=== PATIENT | female | born 1955 | race Caucasian/White ===

== ENCOUNTER 2024-01-15 09:31 | Outpatient (AMB) | payer OTHER, SELFPAY ==
--- NOTE | 2024-01-15 09:46 | MHC.PC.OV ---
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 Intake Note: New patient visit Study Abroad Advisor Required: No Allergies acetaminophen [From Percocet] Allergy (Unknown, Verified 01/15/24 09:48) Itching oxycodone [From Percocet] Allergy (Unknown, Verified 01/15/24 09:48) Itching Tobacco use date assessed: 01/15/24 Fall risk assessment: 2 + Falls in past year Last assessed Fall Risk: 01/15/24 Dental Screening Dental Screen Date: 01/15/24 Did you have a dental visit in the last 12 months?: Yes Did you have a dental problem in the last 6 months where you did not have access to dental care?: No Was dental information given to patient?: Patient has dentist HPI HPI Comments History of Present Illness Details The patient is a 68 year old female with a past medical history of anxiety/grief, osteoarthritis, impaired fasting glucose and hyperlipidemia presenting for follow-up Chronic pain: Chronic neck, thoracic and low back pain, bilateral hip pain. Stable on oxycodone. Her about a year ago and she has had 2 take over many of the more laborious work around the house. She has a history of multiple back surgeries-Dr. Valdes and thoracic back surgery in [place] Anxiety/insomnia: Present in 2022. She has been able to get off lorazepam in have been sleeping better however recently had increased stress when she found out her daughter had breast cancer. She has been helping her get through surgery, chemo and radiation therapy. They will find out what her prognosis in a few months. CV: On statin, fenofibrate Preventive: Mammo is due. Colonoscopy is up-to-date ROS CONSTITUTIONAL: Denies weight loss, fever and chills. HEENT: Denies changes in vision and hearing. RESPIRATORY: Denies SOB and cough. CV: Denies palpitations and CP GI: Denies abdominal pain, nausea, vomiting and diarrhea. : Denies dysuria and urinary frequency. MSK: Denies new myalgia and joint pain. SKIN: Denies rash and pruritus. NEUROLOGICAL: Denies headache PSYCHIATRIC: Denies recent changes in mood. PHYSICAL EXAM: GENERAL: Alert and oriented x 3. NAD EYES: EOMI. Anicteric. HENT: Moist mucous membranes. No scleral icterus. No cervical lymphadenopathy. LUNGS: Clear to auscultation bilaterally. CARDIOVASCULAR: Regular rate and rhythm. No murmur. No JVD. ABDOMEN: Soft, non-tender +bs EXTREMITIES: No edema. Non-tender. SKIN: No rashes or lesions. Warm. NEUROLOGIC: No focal neurological deficits. CN II-XII grossly intact PSYCHIATRIC: Cooperative. 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 1. Little interest or pleasure in doing things: not at all 2. Feeling down, depressed, or hopeless: not at all 3. Trouble falling or staying asleep, or sleeping too much: several days 4. Feeling tired or having little energy: several days 5. Poor appetite or overeating: not at all 6. Feeling bad about yourself - or that you are a failure or have let yourself or your family down: not at all 7. Trouble concentrating on things, such as reading the newspaper or watching television: not at all 8. Moving or speaking so slowly that other people could have noticed. Or the opposite - being so fidgety or restless that you have been moving around a lot more than usual: not at all 9. Thoughts that you would be better off or of hurting yourself in some way: not at all Total score: 2 Depression Screening Interpretation: Negative Depression Screening Done: Yes 62521 - PHQ-9 Billing: Yes Source: Developed by Drs. Tobias Kelly, Erlinda Horton, Fer Vallejo and colleagues, with an educational melva from [employer]. Thrive Questionnaire Date Thrive assessed: 01/15/24 I am a: Patient What is your living situation today?: I have a steady place to live Within the past 12 months, did the food you bought not last and you didn't have the money to get more?: Often true Within the past 12 months, did you worry whether your food would run out before you got money to buy more?: Often true Do you have trouble paying for medicines?: No Do you have trouble getting transportation to medical appointments?: No Do you have trouble paying your heating and electricity bill?: No Do you have trouble taking care of your child, family member or friend?: No Do you have trouble with day-to-day activities such as bathing, preparing meals, shopping, managing finances, etc.?: No Are you currently unemployed and looking for a job?: No Are you interested in more education?: No Please select the resources that you would like help with: None Currently or been in a relationship where the following occur: No concerns reported THRIVE Score: 2 AUDIT C Alcohol Use Questionnaire (AUDIT-C) 1. How often do you have a drink containing alcohol?: 2-4 times a month 2. How many drinks containing alcohol do you have on a typical day when you are drinking?: 1 or 2 3. How often do you have six or more drinks on one occasion?: Less than monthly Total Score: 3 MAGUE-7 AMB Questionnaire MAGUE-7 Date MAGUE - 7 assessed: 01/15/24 Feeling nervous, anxious, or on edge: 0 = Not at all Not being able to stop or control worryin = Not at all Worrying too much about different things: 1 = Several days Trouble relaxin = Several days Being so restless that it is hard to sit still: 0 = Not at all Becoming easily annoyed or irritable: 0 = Not at all Feeling afraid as if something awful might happen: 0 = Not at all Total MAGUE-7 score (0-4 normal; 5-9 mild; 10-14 moderate; 15-21 severe): 2 Source: Developed by Drs. Tobias Kelly, Erlinda Horton, Fer Vallejo and colleagues, with an educational melva from [employer]. MAGUE-7 Assessment Billing MAGUE-7 Assessment Tool: MAGUE-7 Assessment 91266 Physical exam (Primary Care) Depression Screening Interpretation: Negative Currently or been in a relationship where the following occur: No concerns reported Coding Level of Care Code Est Pt Level 5 (18546) Complex EM visit Add On G2211 Diagnoses Anxiety F41.9 Recurrent major depressive disorder, in partial remission F33.41 Depression Type: major depressive disorder Major depression recurrence: recurrent Active/Remission status: in partial remission Mixed hyperlipidemia E78.2 Hyperlipidemia type: mixed hyperlipidemia Chronic bilateral low back pain without sciatica M54.50; G89.29 Back pain location: low back pain Back pain laterality: bilateral Sciatica presence: without sciatica Additional Codes MAGUE-7 Assessment Billing - MAGUE-7 Assessment Tool: MAGUE-7 Assessment 18377 ([id number]) PHQ-9 - 08303 - PHQ-9 Billing: Yes ([id number]) Time Spent (min) 47 Assessment & Plan Assessment & Plan (1) Anxiety: Code(s): F41.9 - Anxiety disorder, unspecified Category: Medical (2) Depression: Code(s): F32.A - Depression, unspecified Category: Medical Qualifiers: Depression Type: major depressive disorder Major depression recurrence: recurrent Active/Remission status: in partial remission Qualified Code(s): F33.41 - Major depressive disorder, recurrent, in partial remission (3) Hyperlipidemia: Code(s): E78.5 - Hyperlipidemia, unspecified Category: Medical Qualifiers: Hyperlipidemia type: mixed hyperlipidemia Qualified Code(s): E78.2 - Mixed hyperlipidemia (4) Chronic back pain: Code(s): M54.9 - Dorsalgia, unspecified; G89.29 - Other chronic pain Category: Medical Qualifiers: Back pain location: low back pain Back pain laterality: bilateral Sciatica presence: without sciatica Qualified Code(s): M54.50 - Low back pain, unspecified; G89.29 - Other chronic pain Plan Anxiety and depression are stable on current medications Chronic pain/failed back syndrome is stable on opiate therapy Hyperlipidemia: She is due for labs Preventive: Mammo with ordered. Colonoscopy is up-to-date Orders: Orders Complete Blood Count Auto Diff Today F32.A - Depression, unspecified, F41.9 - Anxiety disorder, unspecified, R61 - Generalized hyperhidrosis, Z13.0 - Encounter for screening for diseases of the blood and blood-forming organs and certain disorders involving the immune mechanism, Z13.220 - Encounter for screening for lipoid disorders Comprehensive Met. Panel Today F32.A - Depression, unspecified, F41.9 - Anxiety disorder, unspecified, R61 - Generalized hyperhidrosis, Z13.0 - Encounter for screening for diseases of the blood and blood-forming organs and certain disorders involving the immune mechanism, Z13.220 - Encounter for screening for lipoid disorders TSH reflex Free T4 Today F32.A - Depression, unspecified, F41.9 - Anxiety disorder, unspecified, R61 - Generalized hyperhidrosis, Z13.0 - Encounter for screening for diseases of the blood and blood-forming organs and certain disorders involving the immune mechanism, Z13.220 - Encounter for screening for lipoid disorders T Spot TB Today F32.A - Depression, unspecified, F41.9 - Anxiety disorder, unspecified, R61 - Generalized hyperhidrosis, Z13.0 - Encounter for screening for diseases of the blood and blood-forming organs and certain disorders involving the immune mechanism, Z13.220 - Encounter for screening for lipoid disorders Hemoglobin A1c Today F32.A - Depression, unspecified, F41.9 - Anxiety disorder, unspecified, R61 - Generalized hyperhidrosis, Z13.0 - Encounter for screening for diseases of the blood and blood-forming organs and certain disorders involving the immune mechanism, Z13.220 - Encounter for screening for lipoid disorders MM screening mammo BI Today Z12.31 - Encounter for screening mammogram for malignant neoplasm of breast Medications: New oxycodone Partial Fill upon patient request. 5 mg PO TID PRN 84 tabs 0RF pain NS Discontinued lorazepam Discontinued Reason: Patient no longer taking 1 - 2 mg (1 - 2 x 1 mg) PO BID 28 days PRN 84 tabs 0RF anxiety
== END 2024-01-15 10:15 | disposition home or self-care (01) ==
PROVIDERS: PCP Internal Medicine; Visit Provider Internal Medicine
DX: E78.2 Mixed hyperlipidemia (principal); F41.9 Anxiety disorder, unspecified; F33.41 Major depressive disorder, recurrent, in partial remission; M54.50 Low back pain, unspecified; G89.29 Other chronic pain

== ENCOUNTER → 2024-01-15 09:31 | Outpatient (BNVA) | payer OTHER, SELFPAY | PROVIDERS: PCP Internal Medicine; Visit Provider Internal Medicine | DX: F41.9 Anxiety disorder, unspecified (principal); F33.41 Major depressive disorder, recurrent, in partial remission; E78.2 Mixed hyperlipidemia; G89.29 Other chronic pain; M54.50 Low back pain, unspecified | CPT/HCPCS: 96127 ==

== ENCOUNTER 2024-01-15 10:43 | Outpatient (REF) | payer OTHER, SELFPAY ==
[2024-01-15 14:24] LABS: MANUAL DIFF FLAG NO
[2024-01-15 14:38] LABS: Basophils Percent Auto 0.5 % (0-2); Eosinophils Percent Auto 0.5 % (0-4); Hematocrit 44.7 % (37.0-47.0); Hemoglobin 15.3 g/dl (12.0-16.0); Imm Gran Abs Auto 0.04 X10*3/uL (0.00-0.03); Imm Gran Pct Auto 0.5 % (0.0-0.4); Lymphocytes Absolute Auto 1.5 X10*3/uL (1.2-4.9); Lymphocytes Percent Auto 20.5 % (20-40); Mean Corpuscular HGB Conc 34.2 g/dl (31.0-35.0); Mean Corpuscular Hemoglobin 33.2 pg (27.0-33.0); Mean Platelet Volume 10.2 fL (9.4-12.3); Monocytes Absolute Auto 0.4 X10*3/uL (0.1-1.2); Monocytes Percent Auto 5.3 % (2-11); Neutrophils Absolute Auto 5.4 x10*3/uL (2.0-8.3); Neutrophils Percent Auto 72.7 % (45-73); Platelet Count 264 X10*3/uL (160-400); Red Blood Count 4.61 X10*6/uL (4.20-5.50); Red Cell Distribution Width 13.3 % (11.0-16.0); White Blood Count 7.4 X10*3/uL (4.8-10.8)
[2024-01-15 15:08] LABS: Estimated Average Glucose 100 mg/dL; Hemoglobin A1C 116.5114 umol/L; Hemoglobin A1c % 5.1 % (<6.0); Total Hemoglobin (HGBA1C) 3654.3066 umol/L
[2024-01-15 16:12] LABS: Alanine Aminotransferase 21 U/L (0-31); Albumin Level 4.3 g/dL (3.5-5.0); Anion Gap 13 (12-20); Aspartate Amino Transferase 24 U/L (5-31); Bilirubin Total 0.4 mg/dL (0.0-1.0); Blood Urea Nitrogen 7 mg/dL (9-16); Carbon Dioxide 25 mmol/L (22-29); Chloride 108 mmol/L (96-108); Estimated Glomerular Filt Rate > 60; Glucose Random 108 mg/dL (60-115); Potassium 4.1 mmol/L (3.3-5.1); Sodium 142 mmol/L (135-145); TSH reflex Free T4 0.85 uIU/mL (0.32-4.0); Total Protein 7.2 g/dL (6.5-8.0)
[2024-01-15 17:27] LABS: Alkaline Phosphatase 65 U/L (39-117)
[2024-01-18 08:19] LABS: TS Negative Control Passed; TS Panel A 1; TS Panel B 0; TS Positive Control Passed; TSpotTB Negative (Negative)
== END 2024-01-15 10:44 | disposition home or self-care (01) ==
LOC: HO.WFDLDS 10:43
PROVIDERS: Visit Provider Internal Medicine
DX: Z13.0 Encounter for screening for diseases of the blood and blood-forming organs and certain disorders involving the immune mechanism (principal); Z13.220 Encounter for screening for lipoid disorders; F41.9 Anxiety disorder, unspecified; F32.A Depression, unspecified; R61 Generalized hyperhidrosis; Z13.1 Encounter for screening for diabetes mellitus
CPT/HCPCS: 36415; 80053; 83036; 84443; 85025; 86481

== ENCOUNTER 2024-03-12 11:28 | Outpatient (REF) | payer MEDICARE, SELFPAY | END 2024-03-12 11:29 | disposition home or self-care (01) | LOC: HO.MAMMO 11:28 | PROVIDERS: PCP Internal Medicine; Visit Provider Internal Medicine | DX: Z13.89 Encounter for screening for other disorder (principal) ==

== ENCOUNTER 2024-06-17 10:54 | Outpatient (REF) | payer OTHER, SELFPAY ==
--- OUTSIDE RECORDS SUMMARY | 2024-06-17 12:57 | XMS_ITS | Clinical Summary ---
Author Organization [facility] [address] [facility] [place] Address [address] [place] [address] Phone Care Team Providers Care Technical Support Specialist Name Role Phone Bouchra Rebolledo MD Primary Care Provider [phone] Encounters Date Type Department Care Team Description 05/30/2024 Telephone Gastroenterology - [address] [address] Lana Claros PA Med Refill from Last 3 Months Social History Tobacco Use Types Packs/Day Years Used Date Smoking Tobacco: Never Assessed Comments Unknown Sex and Gender Information Value Date Recorded Sex Assigned at Not on file Legal Sex Female 4:06 PM EST Gender Identity Not on file Sexual Orientation Not on file Plan of Treatment Health Maintenance Due Date Last Done Comments Breast Cancer Screening 1955 DTaP,Tdap,and Td Vaccines (1 - Tdap) 10/21/1974 Pneumococcal Vaccine: 50+ Ye ars (1 of 1 - PCV) 10/21/2005 Zoster Vaccines (1 of 2) 10/21/2005 COVID-19 Vaccine ( - 2023-2 5 season) 2023 Colorectal Cancer Screening: Colonoscopy 05/30/2024 Depression Screening 05/30/2024 Falls Risk Assessment 05/30/2024 Hepatitis C Screening 05/30/2024 Medicare Annual Wellness Visit 05/30/2024 Osteoporosis Screening (Bone Density Screening) 05/30/2024 Social Influencers of Health Screening 05/30/2024 Influenza Vaccine (Season Ended) 2024 RSV Immunization Adult Patie nts (1 - 1-dose 75+ series) 10/21/2030 HIB Vaccines Aged Out No longer eligi ble based on patient's age to complete this topic HPV Vaccines Aged Out No longer eligi ble based on patient's age to complete this topic Hepatitis A Vaccines Aged Out No long er eligible based on patient's age to complete this topic Hepatitis B Vaccines Aged Out No long er eligible based on patient's age to complete this topic IPV Vaccines Aged Out No longer eligi ble based on patient's age to complete this topic MMR Vaccines Aged Out No longer eligi ble based on patient's age to complete this topic Meningococcal ACWY Vaccine Aged Out N o longer eligible based on patient's age to complete this topic Meningococcal B Vaccine Aged Out No l onger eligible based on patient's age to complete this topic RSV Immunization Patients Un hari 20 months Aged Out No longer eligible b ased on patient's age to complete this topic Varicella Vaccines Aged Out No longer eligible based on patient's age to complete this topic Insurance [place]ICA[place] - [place] MEDIC[place] ADVANTAGE Care Teams Technical Support Specialist Relationship Specialty Start Date End Date Bouchra Rebolledo MD [address] [place] [address], [place] [id number] PCP - General Internal Medicine 05/30/24
== END 2024-06-17 10:55 | disposition home or self-care (01) ==
LOC: HO.MAMMO 10:54
PROVIDERS: PCP Internal Medicine; Visit Provider Internal Medicine
DX: Z12.31 Encounter for screening mammogram for malignant neoplasm of breast (principal)
CPT/HCPCS: 77063; 77067

== ENCOUNTER → 2024-06-17 11:15 | Outpatient (BNV) | payer OTHER, SELFPAY | PROVIDERS: PCP Internal Medicine; Visit Provider Internal Medicine | DX: Z12.31 Encounter for screening mammogram for malignant neoplasm of breast (principal) | CPT/HCPCS: 77063; 77067 ==

== ENCOUNTER 2024-08-05 12:35 | Outpatient (AMB) | payer OTHER, SELFPAY ==
--- NOTE | 2024-08-05 12:44 | A.OFFVIS_ITS ---
Intake Vital Signs 08/05/24 13:11 08/05/24 13:16 Height 5 ft 6 in Weight 224 lb 6 oz BMI 36.2 BP 161/84 H 155/82 H Blood Pressure Location Rt brachial Position Sitting Pulse 92 Pulse Source Pulse Oximeter Temp 97.9 F Temp Source Temporal Artery Scan Pulse Oximetry (%) 98 Oxygen Delivery Method Room Air Intake Visit Reasons: awv Intake Note: Selena presents in the office today for her medicare wellness appointment Allergies acetaminophen [From Percocet] Allergy (Unknown, Verified 08/05/24 12:59) Itching oxycodone [From Percocet] Allergy (Unknown, Verified 08/05/24 12:59) Itching Medication List - Last Reconciled 08/05/24 by Anali Del Real MD fenofibrate 54 mg PO DAILY mecobalamin (vitamin B12) mcg PO morphine ER 15 mg PO Q12H multivitamin (Daily Multi-Vitamin tablet) 1 tab PO DAILY naloxone 4 mg/actuation (Narcan) 4 mg intranasal Q3M PRN omeprazole 20 mg PO DAILY oxycodone 5 mg PO TID PRN NS sertraline 25 mg PO DAILY simvastatin 40 mg PO BEDTIME venlafaxine ER 75 mg PO DAILY Do you need a note to return to daycare/school/sports/work: No HPI HPI Comments History of Present Illness Details The patient is a 68 year old female with a past medical history of a nxiety/grief, osteoarthritis, impaired fasting glucose and hyperlipidemia presenting for AWV Chronic pain: She was seeing Dr Vela. Had left hand surgery planned but dont accept [employer]etna. Looking for new referral. Chronic neck, thoracic and low back pain, bilateral hip pain. Increased thoracic back pain. Still 7-10 out of pain on oxycodone. 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 She has a history of multiple back surgeries-Dr. Valdes and thoracic back surgery in [place] Anxiety/insomnia: Having trouble sleeping. Daughter has breast cancer- She has been helping her get through surgery, chemo and radiation therapy. CV: On statin, fenofibrate Preventive: Mammo 06/17/24 Colonoscopy is up-to-date Care team reviewed-GI Dr Marcos HRA reviewed Independent ADLS ROS CONSTITUTIONAL: Denies weight loss, fever and chills. HEENT: Denies changes in vision and hearing. RESPIRATORY: Denies SOB and cough. CV: Denies palpitations and CP GI: Denies abdominal pain, nausea, vomiting and diarrhea. : Denies dysuria and urinary frequency. MSK: see HPI SKIN: Denies rash and pruritus. NEUROLOGICAL: Denies headache PSYCHIATRIC: Denies recent changes in mood. PHYSICAL EXAM: GENERAL: Alert and oriented x 3. NAD EYES: EOMI. Anicteric. HENT: Moist mucous membranes. No scleral icterus. No cervical lymphadenopathy. LUNGS: Clear to auscultation bilaterally. CARDIOVASCULAR: Regular rate and rhythm. No murmur. No JVD. ABDOMEN: Soft, non-tender +bs EXTREMITIES: No edema. Non-tender. SKIN: No rashes or lesions. Warm. NEUROLOGIC: No focal neurological deficits. CN II-XII grossly intact PSYCHIATRIC: Cooperative. Appropriate mood and affect [facility] Medical History Umbilical hernia Surgical History History of back surgery Hx of cholecystectomy H/O: hysterectomy Hx of appendectomy H/O excision of epidermal inclusion cyst Family History Father Diabetes Sister Breast cancer Brother Diabetes Sister Diabetes Social History Housing: House Alcohol intake: current Patient Tobacco Use Status: Current everyday Tobacco user Cigarettes Per Day: 8 Years Smoked: 52 e-Cigarette/Vaping Use: Never Used Second Hand Smoke Exposure: No Use of substances other than those prescribed or required for medical reasons: No service: No Current occupational status: employed 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 Current occupational exposures/hazards: No Cognitive needs: No Hearing needs: No Vision needs: No Questionnaire Medicare Wellness Checkup What [age] What gender do you identify with?: female During the past 4 weeks, how much have you been bothered by emotional problems such as feeling anxious, depressed, irritable, sad or downhearted, and blue?: slightly During the past 4 weeks, has your physical & emotional health limited your social activities with family, friends, neighbors, or groups?: not at all During the past 4 weeks, how much bodily pain have you generally had?: severe pain During the past 4 weeks, was someone available to help you if you needed & wanted help?: yes, as much as I wanted During the past 4 weeks, what was the hardest physical activity you could do for at least 2 minutes?: heavy Can you get to places out of walking distance without help? (For eg., can you travel alone on buses, taxis or drive your car?): Yes Can you go shopping for groceries or clothes without someone's help?: Yes Can you prepare your own meals?: Yes Can you do your housework without help?: Yes Because of any health problems, do you need the help of another person with your personal care needs such as eating, bathing, dressing or getting around the house?: Yes Can you handle your own money without help?: Yes During the past 4 weeks, how would you rate your health in general?: good During the past 4 weeks how have things been going for you?: pretty well Are you having difficulties driving your car?: no Do you always fasten your seat belt when you are in a car?: yes, usually During past 4 weeks, have you been bothered by the following: never: Falling or dizzy when standing up, Sexual problems? and Problems using the telephone?, sometimes: Teeth or denture problems?, often: Trouble eating well? and always: Tiredness or fatigue? Have you fallen 2 or more times in the past year?: Yes Are you afraid of falling?: No Are you a smoker?: yes, but I'm not ready to quit During the past 4 weeks, how many drinks of wine, beer, or other alcoholic beverages did you have?: 2-5 drinks per week Do you exercise for about 20 minutes 3 or more times a week?: no, I usually do not exercise this much Have you been given information to help with the following?: yes: Keeping track of your medications? and no: Hazards in your house that might hurt you? How often do you have trouble taking medicines the way you have been told to take them?: I always take medicine as prescribed How confident are you that you can control & manage most of your health problems?: very confident What is your race?: White Mini Mental State Exam (MMSE) Orientation What is the (year) (season) (date) (day) (month)?: year, season, date, day and month Where are we (state) (county) (town or city) (hospital) (floor)?: state, county, town or city, hospital/clinic and floor Registration Name of 3 unrelated objects clearly and slowly, then ask patient to repeat all 3 of them. (1st repeat determines score. Make sure they can repeat all three): object 1, object 2 and object 3 Attention & Calculation (CHOOSE ONE) Ask pt to begin with 100 & count backward by 7. Stop after 5 repeats. If pt cannot ask them to spell the word WORLD backward.: 93 and 86 Spell WORLD backwards (DLROW): 5 letters Recall Ask patient to repeat the 3 items from question #3.: object 1, object 2 and object 3 Language Show patient a wristwatch & ask what it is. Repeat for pencil.: watch Ask the patient to repeat the phrase 'No ifs, ands, or buts' after you.: correct Ask the patient to 'take a piece of paper with their right hand' 'fold paper in half' 'place paper on floor': take paper in right hand, fold paper in half and place paper on floor Print the sentence 'CLOSE YOUR EYES' on a piece. If patient actually closes eyes then score.: followed written direction Give patient a blank piece of paper & ask to write a sentence. Score if it contains a noun & verb.: sentence contains subject and verb Score Score: 30 Activity of Daily Living Bathing - sponge bath, tub bath or shower: receives no assistance (gets in/out by self, if usual bathing means Dressing - getting clothes from closets & drawers, including inner/outer garments & fasteners.: gets clothes & gets completely dressed without help Toileting - going to the 'toilet room' for urine/bowel elimination & cleaning self/arranging clothes: goes to toilet room, cleans self, arranges clothes without help Transfer: moves in & out of bed and chair without help (may use support object) Continence: controls urination/bowel movements completely by self Feeding: feeds self without help Total Score: 0 Information obtained from: patient Using telephone: independent Traveling: independent Shopping: independent Preparing meals: independent Housework: independent Taking medicine: independent Managing money: independent PHQ-9 Over the last 2 weeks, how often have you been bothered by any of the following problems? 1. Little interest or pleasure in doing things: not at all 2. Feeling down, depressed, or hopeless: several days 3. Trouble falling or staying asleep, or sleeping too much: nearly every day 4. Feeling tired or having little energy: nearly every day 5. Poor appetite or overeating: more than half the days 6. Feeling bad about yourself - or that you are a failure or have let yourself or your family down: several days 7. Trouble concentrating on things, such as reading the newspaper or watching television: not at all 8. Moving or speaking so slowly that other people could have noticed. Or the opposite - being so fidgety or restless that you have been moving around a lot more than usual: not at all 9. Thoughts that you would be better off or of hurting yourself in some way: not at all Total score: 10 Depression Screening Interpretation: Positive Depression Screening Follow-up: Existing condition Depression Screening Done: Yes 45340 - PHQ-9 Billing: Yes Source: Developed by Drs. Tobias Kelly, Erlinda Horton, Fer Vallejo and colleagues, with an educational melva from [employer]. Physical Exam Vital Signs: Last Vital Signs Temp 97.9 F 08/05/24 13:11 Pulse 92 08/05/24 13:11 BP 155/82 H 08/05/24 13:16 Pulse Ox 98 08/05/24 13:11 Oxygen Delivery Method Room Air 08/05/24 13:11 BMI result Body Mass Index 36.2 Assessment & Plan Assessment & Plan (1) Medicare annual wellness visit, subsequent: Code(s): Z00.00 - Encounter for general adult medical examination without abnormal findings (2) Thoracic back pain: Code(s): M54.6 - Pain in thoracic spine Qualifiers: Back pain laterality: bilateral Chronicity: chronic Qualified Code(s): M54.6 - Pain in thoracic spine; G89.29 - Other chronic pain (3) Failed back surgical syndrome: Code(s): M96.1 - Postlaminectomy syndrome, not elsewhere classified (4) Left hand pain: Code(s): M79.642 - Pain in left hand Plan MWV HRA reviewed Care team reviewed. Medications reconciled Chronic pain. suboptimal control. Start morphine ER. continue prn oxycodone. narcan -resent xray thoracic spine Referral ortho for hand consult Orders: Orders XR thoracic spine 3V Today M54.6 - Pain in thoracic spine Referrals Orthopedics Referral M72.0 - Palmar fascial fibromatosis [Dupuytren], M79.642 - Pain in left hand Medications: New naloxone 4 mg/actuation (Narcan) spray 1 dose into ONE nostril; alternate nostrils w each dose until help arrives 4 mg intranasal Q3M PRN 2 ea 0RF opioid overdose morphine ER Partial Fill upon patient request. 15 mg PO Q12H 60 tabs 0RF M54.6 - Pain in thoracic spine Quality Reporting (2019) Depression/Bipolar (159/160/161/177) PHQ-9: Total score: 10 Coding Level of Care Code Medicare Subsequent (G0439) Diagnoses Medicare annual wellness visit, subsequent Z00.00 Chronic bilateral thoracic back pain M54.6; G89.29 Back pain laterality: bilateral Chronicity: chronic Failed back surgical syndrome M96.1 Left hand pain M79.642 CPT Codes Advance Care Planning - Time spent: 1-15 minutes, not on file ([id number]) Additional Codes PHQ-9 - 53940 - PHQ-9 Billing: Yes ([id number]) Advance Care Planning Advance Care Planning discussion: Exists, not on file Date of discussion: 08/05/24 Who was present: myself and patient Time spent: 1-15 minutes, not on file
[2024-08-05 13:11] VITALS: BP 161/84; PULSE 92; TEMP 36.6; O2SAT 98; BMI 36.2
[2024-08-05 13:16] VITALS: BP 155/82
--- OUTSIDE RECORDS SUMMARY | 2024-08-05 14:47 | XMS_ITS | Clinical Summary ---
Author Organization [facility] [address] [facility] [address] Address [address] [place] [address] Phone Care Team Providers Care Broadcast Engineer Name Role Phone Bouchra Rebolledo MD Primary Care Provider [phone] Medications omeprazole (PriLOSEC) [address] capsuleIndicati ons:Gastroesoph ageal reflux disease without esophagitis TAKE 1 CAPSULE(20 MG) BY MOUTH 1 TIME EACH DAY. DO NOT CRUSH OR CHEW 30 capsule 5 Active omeprazole (PriLOSEC) [address] capsuleIndicati ons:Gastroesoph ageal reflux disease without esophagitis Take 1 capsule (20 mg total) by mouth 1 (one) time each day. Do not crush or chew. 30 each 5 025 Discontinued Encounters Date Type Department Care Team Description 05/30/2024 Telephone Gastroenterology - [address] [place] [phone] Lana Claros PA Med Refill from [...] Vaccines (1 of 2) 10/21/2005 COVID-19 Vaccine (1 - 2024-2 5 season) 2023 Colorectal Cancer Screening: Colonoscopy [...] - [place] [employer] [place] Care Teams Broadcast Engineer Relationship Specialty Start Date End Date Bouchra Rebolledo MD [address] [phone] PCP - General Internal Medicine 05/30/24
== END 2024-08-05 14:34 | disposition home or self-care (01) ==
LOC: HO.HMCFM 12:36
PROVIDERS: PCP Internal Medicine; Visit Provider Internal Medicine
DX: Z00.00 Encounter for general adult medical examination without abnormal findings (principal); M54.6 Pain in thoracic spine; G89.29 Other chronic pain; M96.1 Postlaminectomy syndrome, not elsewhere classified; M79.642 Pain in left hand

== ENCOUNTER → 2024-08-05 12:35 | Outpatient (BNVA) | payer OTHER, SELFPAY | PROVIDERS: PCP Internal Medicine; Visit Provider Internal Medicine | DX: Z00.00 Encounter for general adult medical examination without abnormal findings (principal); M54.6 Pain in thoracic spine; G89.29 Other chronic pain; M96.1 Postlaminectomy syndrome, not elsewhere classified; M79.642 Pain in left hand | CPT/HCPCS: 96127 ==

== ENCOUNTER 2024-09-29 08:08 | Outpatient (REF) | payer MEDICARE, SELFPAY ==
--- OUTSIDE RECORDS SUMMARY | 2024-09-30 08:14 | XMS_ITS | Clinical Summary ---
Author Organization [facility] [address] [facility] [facility] Address [address] [place] [address] Phone Care Team Providers Care Principal Investigator Name Role Phone Bouchra Rebolledo MD Primary Care Provider [phone] Medications omeprazole (PriLOSEC) [address] capsuleIndicatio ns:Gastroesophag eal reflux disease without esophagitis Take 1 capsule (20 mg total) by mouth 1 (one) time each day. Do not crush or chew. 30 capsule 1 5 Active omeprazole (PriLOSEC) [address] capsuleIndicatijw ns:Gastroesophag eal reflux disease without esophagitis TAKE 1 CAPSULE(20 MG) BY MOUTH 1 TIME EACH DAY. DO NOT CRUSH OR CHEW 30 capsule 5 09/18/19 25 Discontinu ed(Reorder ) Encounters Date Type Department Care Team Description 09/17/2024 Telephone Gastroenterology - [address] [phone] Lana Claros PA from Last 3 Months Social History Tobacco Use Types Packs/Day Years Used Date Smoking Tobacco: Never Assessed Comments Unknown Sex and Gender Information Value Date Recorded Sex Assigned at Not on file Legal Sex Female 4:06 PM EST Gender Identity Not on file Sexual Orientation Not on file Plan of Treatment Upcoming Encounters Date Type Department Care Team ([facility] Contact Info) Description 11/14/2024 11:20 AM EDT Office Visit Gastroenterology - [address] [phone] Lana Claros PA [address] [id number] Health Maintenance Due Date Last Done Comments Breast Cancer Screening 1955 DTaP,Tdap,and Td Vaccines (1 - Tdap) 10/21/1974 Pneumococcal Vaccine: 50+ Ye ars (1 of 1 - PCV) 10/21/2005 Zoster Vaccines (1 of 2) 10/21/2005 COVID-19 Vaccine (1 - 2023-2 5 season) 2023 Depression Screening 02/27/2024 Colorectal Cancer Screening: Colonoscopy 05/30/2024 Falls Risk Assessment 05/30/2024 Hepatitis C Screening 05/30/2024 Medicare Annual Wellness Visit 05/30/2024 Osteoporosis Screening (Bone Density Screening) 05/30/2024 Social Influencers of Health Screening 05/30/2024 Influenza Vaccine (#1) 2024 RSV Immunization Adult Patie nts (1 [...] - [place] [employer] [place] Care Teams Principal Investigator Relationship Specialty Start Date End Date Bouchra Rebolledo MD [address] [place] [phone] PCP - General Internal Medicine 05/30/24
== END 2024-09-29 08:09 | disposition home or self-care (01) ==
LOC: HO.HOSX 08:08
DX: Z13.89 Encounter for screening for other disorder (principal)

== ENCOUNTER 2024-11-05 08:30 | Outpatient (AMB) | payer MEDICARE, SELFPAY ==
--- NOTE | 2024-11-05 09:01 | MHC.OFFVIS ---
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 States she has noticed her ring finger contract inward towards her palm. No injury. She first noticed she was not able to flatten hand on a surface about 1 year ago. Patient mentions she gets pain at times. Denies numbness, tingling or locking of any finger. Patient is interested in discussing surgery. 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 She complains of a contracture of her left ring finger for ~1 year now. She says she is not able to fully extend her ring finger or place it flat on a surface. She says she has some pain at times, but is not consistent. 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 She is a smoker. Hx of right ring finger fasciectomy with Dr Vela in ~[phone].(NEOS). She says she was scheduled for a left hand surgery in the past, but this would not be fully covered by her insurance at the time. [facility] Medical History Umbilical hernia Surgical History History of back surgery Hx of cholecystectomy H/O: hysterectomy Hx of appendectomy H/O excision of epidermal inclusion cyst Family History Father Diabetes Sister Breast cancer Brother Diabetes Sister Diabetes Social History (Updated 11/05/24 @ 09:19 by Kaylah Cigaran, CCMA) Housing: House Alcohol intake: current Patient Tobacco Use Status: Current everyday Tobacco user Cigarettes Per Day: 8 Years Smoked: 52 e-Cigarette/Vaping Use: Never Used Second Hand Smoke Exposure: No service: No Current occupational status: employed 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 Current occupational exposures/hazards: No Cognitive needs: No Hearing needs: No Vision needs: No Review of Systems Const All systems reviewed & are unremarkable except as noted in HPI and below Physical Exam Vital Signs: BMI result Body Mass Index 36.2 Const General: cooperative, healthy appearing and no acute distress Orientation/consciousness: patient oriented x3 HEENT Head: Yes normocephalic and Yes atraumatic Eyes EOM: EOMs intact bilaterally Resp Effort & Inspection: normal respiratory effort and able to speak in complete sentences Cardio Jugular venous distension: no JVD Skin General skin exam: turgor normal Rashes: no rashes Neuro General: patient oriented x3 Extrem Other: Evaluation of Left Upper Extremity: The patient is alert, oriented, and in no acute distress Neuro: Median, Ulnar, Radial nerves motor and sensory intact and sensation is normal to the tips of all digits Vascular: Cap refill brisk ROM: She can bring all her fingers closed to a fist She can extend all her digits, except for her ring finger Left Ring finger Dupuytrens contracture: MCP 35/PIP 30 Central cord extending from the palm up the ring finger to about the PIP joint Skin: No lacerations or abrasions. General: No Ecchymosis. No Erythema or evidence of infection. Radiographs: 3 views of the left hand were taken and viewed by me today in clinic. They show no fractures or dislocations. Psych Appearance: grossly normal Affect: normal affect Attitude: cooperative Assessment & Plan Assessment & Plan (1) Dupuytren's contracture of left hand: Code(s): M72.0 - Palmar fascial fibromatosis [Dupuytren] Category: Medical Plan Assessment & Plan: 1. Left ring finger Dupuytrens contracture MCP 35/PIP 30 I educated her about this condition I discussed operative and non-operative treatment options The patient would like to proceed with surgery. She is concerned if she has coverage here through her insurance. She will speak with our museum service scheduler concerning this. The risks and benefits of operative treatment were discussed with the patient and the patient wishes to proceed with surgery. These risks include, but are not limited to risk of damage to blood vessels, nerves, tendons, infection, recurrence, incomplete relief of preoperative symptoms, persistent pain, possible need for further surgery and the risks associated with regional blocks and anesthesia. As she is on Opioid pain medication for back pain, she will also receive a block prior to surgery The plan is to take the patient to the operating room sometime in the next few weeks for the following procedures: 1. Left ring finger partial fasciectomy, under general All of the preoperative paperwork including the consent was reviewed today. All the patient's questions were answered. The patient understands that they will be contacted by our museum service scheduler soon to schedule this procedure She denies Diabetes, blood thinners, asthma, heart, lung, kidney issues She is on Oxycodone & morphine for failed back syndrome & chronic back pain. She is a smoker 2. History of right ring finger partial fasciectomy DOS: ~[address] Vela at [facility] Doing well, no complaints Scribed for Rosalinda Madera MD by Edmond Farmer, director of graduate medical education, on 11/05/24 at 9:35 AM, EST. Coding Level of Care Code New Pt Level 4 (91828) Diagnoses Dupuytren's contracture of left hand M72.0
[2024-11-05 09:08] VITALS: BMI 36.2
--- OUTSIDE RECORDS SUMMARY | 2024-11-05 09:49 | XMS_ITS | Clinical Summary ---
Author Organization [facility] [address] [facility] [address] Address [address] [place] [address] Phone Care Team Providers Care Plumbing Engineer Name Role Phone Bouchra Rebolledo MD Primary Care Provider [phone] Medications omeprazole (PriLOSEC) [address] Jimenez ns:Gastroesophag eal reflux disease without esophagitis Take 1 capsule (20 mg total) by mouth 1 (one) time each day. Do not crush or chew. 30 capsule 1 09/17/2024 Active Encounters Date Type Department Care Team Description 09/17/2024 Telephone Gastroenterology - [address] [place] [phone] Lana Claros PA from Last 3 Months Social History Tobacco Use Types Packs/Day Years Used Date Smoking Tobacco: Never Assessed Comments Unknown Sex and Gender Information Value Date Recorded Sex Assigned at Not on file Legal Sex Female 4:06 PM EST Gender Identity Not on file Sexual Orientation Not on file Plan of Treatment Upcoming Encounters Date Type Department Care Team ([facility] st Contact Info) Description 11/14/2024 11:20 AM EDT Office Visit Gastroenterology - [address] [place] [phone] Lana Claros PA [address] [place] [phone] Health Maintenance Due Date Last Done Comments Breast Cancer Screening 1955 DTaP,Tdap,and Td Vaccines (1 - Tdap) 10/21/1974 Pneumococcal Vaccine: 50+ Ye ars (1 of 1 - PCV) 10/21/2005 Zoster Vaccines (1 of 2) 10/21/2005 Depression Screening 02/27/2024 Colorectal Cancer Screening: Colonoscopy 05/30/2024 Falls Risk Assessment 05/30/2024 Hepatitis C Screening 05/30/2024 Medicare Annual Wellness Visit 05/30/2024 Osteoporosis Screening (Bone Density Screening) 05/30/2024 Social Influencers of Health Screening 05/30/2024 COVID-19 Vaccine (1 - 2023-2 5 season) 2024 Influenza Vaccine (#1) 2024 RSV Immunization Adult [...] - [place] [employer] Care Teams Plumbing Engineer Relationship Specialty Start Date End Date Bouchra Rebolledo MD [address] [place] [phone] PCP - General Internal Medicine 05/30/24
== END 2024-11-05 09:47 | disposition home or self-care (01) ==
LOC: HO.HOS 08:31
PROVIDERS: Visit Provider Orthopaedic Surgery
DX: M72.0 Palmar fascial fibromatosis [Dupuytren] (principal)
CPT/HCPCS: 99204

== ENCOUNTER → 2024-11-05 08:30 | Outpatient (BNVA) | payer MEDICARE, SELFPAY | PROVIDERS: Visit Provider Orthopaedic Surgery | DX: M72.0 Palmar fascial fibromatosis [Dupuytren] (principal) | CPT/HCPCS: 99202 ==

== ENCOUNTER 2024-12-30 14:43 | Outpatient (AMB) | payer MEDICARE, MEDICAID, SELFPAY ==
--- NOTE | 2024-12-30 14:52 | A.OFFVIS_ITS ---
Vital Signs 12/30/24 14:55 Height 5 ft 6 in Weight 170 lb BMI 27.4 BP 176/90 H Blood Pressure Location Rt brachial Position Sitting Pulse 96 Pulse Oximetry (%) 98 Intake Visit Reasons: OV-Pre-op LT RF dupuytrens 01/05/25 AR Intake Note: Selena is a 69 year old right hand dominant female who presents today pre- operatively for discussion of their Left Ring Finger Partial Fasciectomy scheduled for 01/05/[address] Madera. Consents signed in office today. At today's visit she no changes to report at this time. vitals: 186/89(AA aware) 2nd Vitals: 176/90 Allergies oxycodone (From Percocet) Adverse Reaction (Intermediate, Verified 12/22/24 10:24) occasional itching-does take 5 mg TID prn HPI HPI OV-Pre-op LT RF dupuytrens 01/05/25 AR: Details: Selena is a 69 year old right hand dominant female who presents today pre- operatively for discussion of their Left Ring Finger Partial Fasciectomy scheduled for 01/05/[address] Madera. Consents signed in office today. At today's visit she no changes to report at this time. vitals: 186/89(AA aware) 2nd Vitals: 176/90 PFSH Medical History Failed back surgical syndrome Hyperlipidemia Anxiety Depression Back pain Umbilical hernia Surgical History (Updated 01/05/25 @ 08:11 by Adelia Stallworth RN) Hx of fusion of cervical spine Hx of hernia repair Hx of hand surgery History of back surgery Hx of cholecystectomy H/O: hysterectomy Hx of appendectomy H/O excision of epidermal inclusion cyst Family History Father Diabetes Sister Breast cancer Brother Diabetes Sister Diabetes Social History (Updated 11/05/24 @ 09:19 by JUVENAL Fitzpatrick) Housing: House Are you a primary pet caregiver to a significant other at home: No Do you presently have visiting nurse or other home services: No Alcohol intake: current Alcohol intake frequency: holidays/special occasions only Patient Tobacco Use Status: Current everyday Tobacco user Tobacco use type: Cigarette Cigarettes Per Day: 3 Years Smoked: 53 e-Cigarette/Vaping Use: Never Used Second Hand Smoke Exposure: No Use of substances other than those prescribed or required for medical reasons: No Have you been hit, kicked, punched, or otherwise hurt by someone within the past year? If so, by whom?: No Spiritual Healthcare Practices: no Adventist Healthcare Practices: no Cultural Healthcare Practices: no Are you DNR?: No Advance Directives Information Provided: Yes (as above noted) Advance Directives on File: No service: No Current occupational status: employed Current occupation: [employer]/ rt hand Current occupational exposures/hazards: No Cognitive needs: No Hearing needs: No Vision needs: No Physical Exam Vital Signs: Last Vital Signs Pulse 96 12/30/24 14:55 BP 176/90 H 12/30/24 14:55 Pulse Ox 98 12/30/24 14:55 BMI result Body Mass Index 27.4 Const General: cooperative, healthy appearing and no acute distress Orientation/consciousness: patient oriented x3 HEENT Head: Yes normocephalic and Yes atraumatic Eyes EOM: EOMs intact bilaterally Resp Effort & Inspection: normal respiratory effort and able to speak in complete sentences Cardio Jugular venous distension: no JVD Skin General skin exam: turgor normal Rashes: no rashes Neuro General: patient oriented x3 Extrem Other: Evaluation of Left Upper Extremity: The patient is alert, oriented, and in no acute distress Neuro: Median, Ulnar, Radial nerves motor and sensory intact and sensation is normal to the tips of all digits Vascular: Cap refill brisk ROM: She can bring all her fingers closed to a fist She can extend all her digits, except for her ring finger Left Ring finger Dupuytrens contracture: MCP 35/PIP 30 Central cord extending from the palm up the ring finger to about the PIP joint Skin: No lacerations or abrasions. General: No Ecchymosis. No Erythema or evidence of infection. Psych Appearance: grossly normal Affect: normal affect Attitude: cooperative Assessment & Plan Assessment & Plan (1) Dupuytren's contracture of left hand: Code(s): M72.0 - Palmar fascial fibromatosis [Dupuytren] Category: Medical Plan Assessment & Plan: 1. Left ring finger Dupuytrens contracture MCP 35/PIP 30 I educated her about this condition I discussed operative and non-operative treatment options The patient would like to proceed with surgery. She is concerned if she has coverage here through her insurance. She will speak with our director sterile processing concerning this. The risks and benefits of operative treatment were discussed with the patient and the patient wishes to proceed with surgery. These risks include, but are not limited to risk of damage to blood vessels, nerves, tendons, infection, recurrence, incomplete relief of preoperative symptoms, persistent pain, possible need for further surgery and the risks associated with regional blocks and anesthesia. As she is on Opioid pain medication for back pain, she will also receive a block prior to surgery The plan is to take the patient to the operating room sometime in the next few weeks for the following procedures: 1. Left ring finger partial fasciectomy, under general All of the preoperative paperwork including the consent was reviewed today. All the patient's questions were answered. The patient understands that they will be contacted by our director sterile processing soon to schedule this procedure She denies Diabetes, blood thinners, asthma, heart, lung, kidney issues She is on Oxycodone & morphine for failed back syndrome & chronic back pain. She is a smoker 2. History of right ring finger partial fasciectomy DOS: ~[address] Vela at [facility] Doing well, no complaints Orders: Orders OT Evaluation and Treatment 12/30/24 M72.0 - Palmar fascial fibromatosis [Dupuytren] Coding Level of Care Code Est Pt Level 4 (56463) Diagnoses Dupuytren's contracture of left hand M72.0
[2024-12-30 14:55] VITALS: BP 176/90; PULSE 96; O2SAT 98; BMI 27.4
--- OUTSIDE RECORDS SUMMARY | 2024-12-30 17:46 | XMS_ITS | Clinical Summary ---
Author Organization [facility] [address] Address [address] [place] [address] Phone Care Team Providers Care Sample Patternmaker Name Role Phone Bouchra Rebolledo MD Primary Care Provider [phone] Allergies Active Allergy Reactions Criticality Noted Date Comments Oxycodone-Acetaminophen Itching 11/14/2024 Sertraline 11/14/2024 Medications omeprazole (PriLOSEC) [address] capsuleIndicatijw ns:Gastroesophag eal reflux disease without esophagitis Take 1 capsule (20 mg total) by mouth 1 (one) time each day. Do not crush or chew. 90 each 3 11/14/2024 11/15/19 26 Active Active Problems Problem Noted Date Diagnosed Date HLD (hyperlipidemia) 11/14/2024 Anxiety 11/14/2024 Encounters Date Type Department Care Team Description 11/14/2024 11:42 AM EDT - 11/14/2024 11:59 PM EDT Hospital Encounter [facility] Xray [address] [place] [id number] Borborygmi; Frequent bowel movements Discharge Disposition: Home or Self Care 11/14/2024 11:20 AM EDT Office Visit Gastroenterology - [address] [id number] Lana Claros PA Borborygmi (Primary Dx); Frequent bowel movements; Gastroesophageal reflux disease without esophagitis; Functional diarrhea; Bloating from Last 3 Months Surgical History Surgery Date Site/Laterality Comments APPENDECTOMY CHOLECYSTECTOMY BACK SURGERY TUBAL LIGATION COLONOSCOPY 08/26/2010 - 09/25/2010 distal HP x1 ([address] yr) [address]. Marcos COLONOSCOPY 11/26/2020 - 12/26/2020 TA x1, rhoids (5yr) Dr. Marcos Social History Tobacco Use Types Packs/Day Years Used Date Smoking Tobacco: Every Day Cigarettes Smokeless Tobacco: Current Tobacco Cessation:Ready to Q uit: Not Asked; Counseling Given: Not Answered Alcohol Use Standard Drinks/Week Comments Yes 0 (1 standard drink = 0.6 oz pur e alcohol) occ Comments Unknown Sex and Gender Information Value Date Recorded Sex Assigned at Not on file Legal Sex Female 4:06 PM EST Gender Identity Not on file Sexual Orientation Not on file Obstetrics History Last Filed Vital Signs Vital Sign Reading Time Taken Comments Blood Pressure - - Pulse - - Temperature - - Respiratory Rate - - Oxygen Saturation - - Inhaled Oxygen Concentration - - Weight 81.1 kg (178 lb 12.8 oz) 025 11:10 AM EDT Height 167.6 cm (5' 6 ) 11/14/2024 11:1 0 AM EDT Body Mass Index 28.86 11/14/2024 11:10 AM EDT Plan of Treatment Health Maintenance Due Date Last Done Comments Breast Cancer Screening 1955 Colorectal Cancer Screening: Colonoscopy 09/16/2020 09/16/2010 Depression Screening 02/27/2024 Cholesterol Screening (Lipid Panel) 05/30/2024 Falls Risk Assessment 05/30/2024 Hepatitis C Screening 05/30/2024 Medicare Annual Wellness Visit 05/30/2024 Osteoporosis Screening (Bone Density Screening) 05/30/2024 Social Influencers of Health Screening 05/30/2024 COVID-19 Vaccine ( season) 2024 12/15/2021, 01/18/2021, 07/06/2020, Additional history exists DTaP,Tdap,and Td Vaccines (4 - Td or Tdap) 11/08/2031 11/07/2021, 12/11/2014, 07/07/2003 Zoster Vaccines Completed 01/26/2022, 10/27, 11/02/2015 Pneumococcal Vaccine: 50+ Years Completed 09/20/2022, 11/13/2012 RSV Immunization Adult Patients Completed 04/16/2024, 10/23/2022 Influenza Vaccine Completed 10/30/2024, , 10/23/2022, Additional history exists HIB Vaccines Aged Out No longer eligi [...] to complete this topic RSV Immunization Patients Under 20 months Aged Out No longer eligible based on patient's age to complete this topic Varicella Vaccines Aged Out No longer eligible based on patient's age to complete this topic Procedures Procedure Name Priority Date/Time Associated Diagnosis Comments XR ABDOMEN 1 VIEW Routine 11/14/2024 12: 03 PM EDT Borborygmi Frequent bowel movements COLONOSCOPY Routine 09/16/2010 10:58 AM EDT from Last 3 Months or Most Recently Relevant to Health Maintenance Results * XR Abdomen 1 View (11/14/2024 12:03 PM EDT) Anatomical Region Laterality Modality Body Radiographic Betzy ging 11/15/2024 7:28 AM EDT Impressions 11/15/2024 7:40 AM EDT Nonspecific gaseous distention without evidence of high-grade bowel obstruction. -------- FINAL REPORT -------- Dictated By: Joey Isaac Dictated Date: 11/15/2024 07:28 ET Assigned Physician: Joey Isaac Reviewed and Electronically Signed By: Joey Isaac Signed Date: 11/15/2024 07:40 ET Workstation ID: [id number] Transcribed By: Self Edit Transcribed Date: 11/15/2024 07:28 ET Narrative 11/15/2024 7:40 AM EDT EXAMINATION: ABDOMEN CLINICAL INFORMATION: Abdominal distention COMPARISON: Frontal view of the abdomen 04/27/20 TECHNIQUE: Frontal view of the abdomen FINDINGS: There has been spinal instrumentation and fusion. There are surgical clips in the right upper quadrant and left lower quadrant. Moderate to large amount of gas throughout the abdomen and pelvis in a nonspecific but unlikely to be obstructive pattern. No pneumatosis or definite evidence of pneumoperitoneum. No suspicious abnormality the visualized lower chest. There is degenerative change above the levels of fusion. Procedure Note Joey Isaac MD - 11/15/2024 EXAMINATION: ABDOMEN CLINICAL INFORMATION: Abdominal distention COMPARISON: Frontal view of the abdomen 04/27/20 TECHNIQUE: Frontal view of the abdomen FINDINGS: There has been spinal instrumentation and fusion. There are surgical clipsin the right upper quadrant and left lower quadrant. Moderate to large amount of gas throughout the abdomen and pelvis in anonspecific but unlikely to be obstructive pattern. No pneumatosis or definite evidence of pneumoperitoneum. No suspiciousabnormality the visualized lower chest. There is degenerative change above the levels of fusion. IMPRESSION: Nonspecific gaseous distention without evidence of high-grade bowelobstruction. -------- FINAL REPORT -------- Dictated By: Joey Isaac Dictated Date: 11/15/2024 07:28 ET Assigned Physician: Joey Isaac Reviewed and Electronically Signed By: Joey Isaac Signed Date: 11/15/2024 07:40 ET Workstation ID: [id number] Transcribed By: Self Edit Transcribed Date: 11/15/2024 07:28 ET Lana FIELD IMG XR PROCEDURES Final Resu lt * COLONOSCOPY (09/16/2010 10:58 AM EDT) Anatomical Region Laterality Modality Endoscopy Historical Provider GI~PROCEDURE ORDERABLES F inal Result from Last 3 Months or Most Recently Relevant to Health Maintenance Insurance MEDICAID - [place] [employer] MEDICARE ADVANTAGE Care Teams Sample Patternmaker Relationship Specialty Start Date End Date Bouchra Rebolledo MD [address] [id number] PCP - General Internal Medicine 05/30/24
== END 2024-12-30 15:51 | disposition home or self-care (01) ==
LOC: HO.HOS 14:43
PROVIDERS: PCP Internal Medicine
DX: M72.0 Palmar fascial fibromatosis [Dupuytren] (principal)
CPT/HCPCS: 99024

== ENCOUNTER → 2024-12-30 14:43 | Outpatient (BNVA) | payer MEDICARE, MEDICAID, SELFPAY | PROVIDERS: PCP Internal Medicine | DX: Z01.818 Encounter for other preprocedural examination (principal); M72.0 Palmar fascial fibromatosis [Dupuytren] | CPT/HCPCS: 99212 ==

== ENCOUNTER 2025-01-05 08:05 | Day surgery (SDC) | payer MEDICARE, MEDICAID, SELFPAY ==
[2024-12-22 10:26] VITALS: BMI 29.5
[2025-01-05 08:21] VITALS: BP 140/87; PULSE 103; RESP 15; TEMP 36.1; O2SAT 98
[2025-01-05] MEDS: Lactated Ringers 1,000 ML 100 ML IVCONT (08:30)
--- NOTE | 2025-01-05 09:00 | HO.ANESPROP2 ---
Documented by User: Dayan Vences NP 12/22/24 12:06 HPI - Anesthesia Eval Consult details Narrative: 69yo F for Left Ring Finger Dupuytrens Contracture Release, 01/05/25 Chronic pain with prn opiates PMFSH Active Problems Active Problems: All Active Problems Dupuytren's contracture of left hand (Acute) Medicare annual wellness visit, subsequent (Acute) Failed back surgical syndrome (Acute) Thoracic back pain (Acute) Left hand pain (Acute) Chronic back pain (Acute) Hyperlipidemia (Acute) Night sweats (Acute) Depression (Acute) Anxiety (Acute) Screening for hyperlipidemia (Acute) Screening, deficiency anemia, iron (Acute) Past Medical History Medical History Failed back surgical syndrome Hyperlipidemia Anxiety Depression Back pain Umbilical hernia Family History Family History Father Diabetes Sister Breast cancer Brother Diabetes Sister Diabetes Surgical History Surgical History (Updated 01/05/25 @ 08:11 by Adelia Stallworth RN) Hx of fusion of cervical spine Hx of hernia repair Hx of hand surgery History of back surgery Hx of cholecystectomy H/O: hysterectomy Hx of appendectomy H/O excision of epidermal inclusion cyst Social History Social History (Updated 11/05/24 @ 09:19 by [facility] Housing: House Are you a primary healthcare management consultant to a significant other at home: No Do you presently have visiting nurse or other home services: No Alcohol intake: current Alcohol intake frequency: holidays/special occasions only Patient Tobacco Use Status: Current everyday Tobacco user Tobacco use type: Cigarette Cigarettes Per Day: 3 Years Smoked: 53 e-Cigarette/Vaping Use: Never Used Second Hand Smoke Exposure: No Use of substances other than those prescribed or required for medical reasons: No Have you been hit, kicked, punched, or otherwise hurt by someone within the past year? 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 Current occupational exposures/hazards: No Cognitive needs: No Hearing needs: No Vision needs: No Meds Allergies Allergy/AdvReac Type Severity Reaction Status Date / Time oxycodone (From Percocet) AdvReac Intermediate occasional Verified 12/22/24 10:24 itching-does take 5 mg TID prn Home Medications ?Medication ?Instructions ?Recorded ?Confirmed ?Last Taken ?Type mecobalamin (vitamin B12) 5,000 5,000 mcg PO DAILY 08/05/24 01/05/25 Unknown History mcg disintegrating tablet multivitamin (Daily Multi-Vitamin 1 tab PO DAILY 08/05/24 01/05/25 Unknown History tablet) omeprazole 20 mg capsule,delayed 20 mg PO DAILY 08/05/24 01/05/25 01/05/25 05:45 History release Exam Height,Weight and Vital Signs: Height 5 ft 6 in Weight 83.007 kg Assessment and Plan Assessment Anesthesia Assessment: Chart Reviewed Documented by User: Adelia Peters DO 01/05/25 09:54 PMFSH Past Medical History Medical History Failed back surgical syndrome Hyperlipidemia Anxiety Depression Back pain Umbilical hernia Family History Family History Father Diabetes Sister Breast cancer Brother Diabetes Sister Diabetes Family history of problems with anesthesia: No Surgical History Surgical History (Updated 01/05/25 @ 08:11 by Adelia Stallworth RN) Hx of fusion of cervical spine Hx of hernia repair Hx of hand surgery History of back surgery Hx of cholecystectomy H/O: hysterectomy Hx of appendectomy H/O excision of epidermal inclusion cyst History of Problems with Anesthesia: No Social History Social History (Updated 11/05/24 @ 09:19 by JUVENAL Fitzpatrick) Housing: House Are you a primary healthcare management consultant to a significant other at home: No Do you presently have visiting nurse or other home services: No Alcohol intake: current Alcohol intake frequency: holidays/special occasions only Patient Tobacco Use Status: Current everyday Tobacco user Tobacco use type: Cigarette Cigarettes Per Day: 3 Years Smoked: 53 e-Cigarette/Vaping Use: Never Used Second Hand Smoke Exposure: No Use of substances other than those prescribed or required for medical reasons: No Have you been hit, kicked, punched, or otherwise hurt by someone within the past year? 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 Current occupational exposures/hazards: No Cognitive needs: No Hearing needs: No Vision needs: No Meds Allergies Allergy/AdvReac Type Severity Reaction Status Date / Time oxycodone (From Percocet) AdvReac Intermediate occasional Verified 12/22/24 10:24 itching-does take 5 mg TID prn Home Medications ?Medication ?Instructions ?Recorded ?Confirmed ?Last Taken ?Type mecobalamin (vitamin B12) 5,000 5,000 mcg PO DAILY 08/05/24 01/05/25 Unknown History mcg disintegrating tablet multivitamin (Daily Multi-Vitamin 1 tab PO DAILY 08/05/24 01/05/25 Unknown History tablet) omeprazole 20 mg capsule,delayed 20 mg PO DAILY 08/05/24 01/05/25 01/05/25 05:45 History release Exam Exam Date and Time: 01/05/25 0900 Height,Weight and Vital Signs: Height 5 ft 6 in Weight 83.007 kg Vital Signs Temperature 97.0 F 01/05/25 08:21 Pulse Rate 103 H 01/05/25 08:21 Respiratory Rate 15 01/05/25 08:21 Blood Pressure 140/87 H 01/05/25 08:21 Pulse Oximetry 98 01/05/25 08:21 Oxygen Delivery Method Room Air 01/05/25 08:21 Temperature 97.0 F 01/05/25 08:21 Pulse Rate 103 H 01/05/25 08:21 Respiratory Rate 15 01/05/25 08:21 Blood Pressure 140/87 H 01/05/25 08:21 Pulse Oximetry 98 01/05/25 08:21 Oxygen Delivery Method Room Air 01/05/25 08:21 Airway Mallampati Class: II TM Dist: >3cm Neck ROM: Limited Denture: Upper Heart: S1S2 Lungs: CTAB Assessment and Plan Assessment Anesthesia Assessment: Anesthesia Plan Discussed and Chart Reviewed Final Anesthetic Review Family History of Problems with Anesthesia: No History of Problems with Anesthesia: No NPO: Yes ASA Class: III Final Preanesthetic Review: No Changes in Pt Med Stat, Meds/Allgs Chart Reviewed, Consent Obtained/Reviewed and Anes Risks/Benef Reviewed Patient Risk: Intermediate Procedure Risk: Low Anesthetic Plan Anesthetic Plan: GA, Regional Block (left brachial plexus block) and Agree w/ Assess. and Plan Disposition: Standard PACU
--- NOTE | 2025-01-05 09:22 | MHC.SHP ---
Pre-Procedural Eval Section A - 24 Hr Update-Section A only Date of Service: 01/05/25 The patient is an INPATIENT: No Changes since office visit: No Cold of Flu in the past 2 weeks, No New Medical Problems, No Changes in Medication and No Patient answered all questions The patient has been examined within 24 hours of the surgical procedure. The History & Physical has been completed within 30 days and I have reviewed it.: Yes Section B - Complete if H&P > 30 days Chief Complaint: Palmar fascial fibromatosis [Dupuytren] Allergies: Allergies Allergy/AdvReac Type Severity Reaction Status Date / Time oxycodone (From Percocet) AdvReac Intermediate occasional Verified 12/22/24 10:24 itching-does take 5 mg TID prn Plan I have reviewed the history and physical and performed a pertinent physical examination on my patient. No changes have occurred unless specified. Time Spent With Patient Time: Total time managing care of this patient today ____ minutes.
--- NOTE | 2025-01-05 09:22 | W.PM.OPN ---
Operative Note Operative Note Date of Service: 01/05/25 Narrative: Preop diagnosis: 1. Left ring finger Dupuytren's contracture Postop diagnosis: Same Procedure: 1. Left ring finger Partial Dupuytren's fasciectomy 2. Ulnar Digital nerve neurolysis Surgeon: Rosalinda Madera MD Cco & President: None Anesthesia: General anesthesia plus regional block Findings: Dupuytren's cord. MCP/PIP/D IP joints all brought into full extension after palmar fasciectomy Implants: None Tourniquet time: 44 minutes EBL: 5.0 ml Specimen: Left ring finger Dupuytren's cord Drains: None Complications: None Disposition: Brought to the recovery room in stable condition Plan: Follow-up in 10-14 days for wound check, suture removal and to check pathology Early OT appointment. I do not think she is going to need an extension splint. Indications: The patient is 69 years old with left ring finger Dupuytren's contracture . The risks and benefits of operative treatment, including but not limited to risk of damage to blood vessels, nerves, tendons, infection, recurrence, persistent pain or numbness, incomplete resolution of preoperative symptoms, or need for further surgery were discussed with the patient and they wished to proceed with surgery. Procedure: Once consent was obtained patient was brought back to the operating suite and placed in the operating table in a supine position. A regional block was performed by the anesthesia team. Perioperative antibiotics and anesthesia was administered by the anesthesia team. A tourniquet was applied to the proximal aspect of the left upper extremity and the limb was prepped and draped in a standard surgical fashion. The limb was elevated exsanguinated with Esmarch bandage and the tourniquet inflated to 250 mm of mercury for a total tourniquet time of 44 minutes. I made a Marily type incision extending along the Dupuytren's cord from the mid palm to the DIP flexion crease of the left ring finger. The incision was made with a 15. Blade through the skin the subcutaneous tissues. I then carefully dissected down to the level of the Dupuytren's cord beginning at the proximal aspect of the incision. This was done using tenotomy and iris scissors. Care was taken to protect the nearby neurovascular structures. The Dupuytren's cord was cut at its proximal aspect using tenotomy scissors. It was then grasped with an Allis clamp. The Dupuytren's cord was then carefully dissected free in a proximal to distal direction using tenotomy scissors and again taking care to protect the nearby neurovascular structures. At about the A1 barbie area I appreciated that the ulnar neurovascular bundle was deviating from its normal anatomic position to pass superficial the Dupuytren's cord. The primary portion of the central cord then passed just distal and ulnar to the PIP joint to the middle phalanx. A 2nd portion of the central cord however did also pass radially, and to the radial aspect of the middle phalanx. Great care was taken to dissect this Dupuytren's cord from the surrounding tissues while protecting the neurovascular structures. A neurolysis was performed on the ulnar neurovascular bundle carefully dissecting it free from the Dupuytren's cords as we proceeded from proximal to distal. The radial neurovascular cord tended to stay in its anatomic position. It was also protected during our dissection. Ultimately the Dupuytren's cord was dissected free from the flexor tendon sheath, proximal in middle phalanxes, and the skin, and passed to the back table to be sent for histopathology. This then allowed me to bring the MCP and PIP joints to full extension. At this point the tourniquet was deflated and hemostasis obtained with a brief period of local pressure and bipolar electrocautery. The wound was copiously irrigated with normal saline. skin edges were reapproximated with 5-0 Prolene suture. The wound was infiltrated with some 0.25% plain Marcaine for postop pain control and a sterile dressing was applied. The patient appears to have tolerated the procedure well and with no complications. All digits were well vascularized conclusion of the case.
[2025-01-05 11:09] VITALS: BP 132/76; PULSE 84; RESP 18; TEMP 36.7; O2SAT 100
[2025-01-05 11:14] VITALS: BP 136/79; PULSE 84; RESP 21; O2SAT 99
[2025-01-05 11:19] VITALS: BP 114/74; PULSE 90; RESP 16; O2SAT 98
[2025-01-05 11:24] VITALS: BP 131/74; PULSE 81; RESP 14; O2SAT 98
[2025-01-05 11:49] VITALS: BP 142/78; PULSE 79; RESP 14; TEMP 36.7; O2SAT 98
== END 2025-01-05 12:22 | disposition home or self-care (01) ==
PROVIDERS: PCP Internal Medicine; Visit Provider Orthopaedic Surgery
PROC: (CPT 26045; principal; 2025-01-05 09:30)
DX: M72.0 Palmar fascial fibromatosis [Dupuytren] (principal); M79.645 Pain in left finger(s); E78.5 Hyperlipidemia, unspecified; G89.29 Other chronic pain; M96.1 Postlaminectomy syndrome, not elsewhere classified; Z79.891 Long term (current) use of opiate analgesic; Z88.5 Allergy status to narcotic agent; Z98.890 Other specified postprocedural states; F17.210 Nicotine dependence, cigarettes, uncomplicated
CPT/HCPCS: 26123; 64702; 88305; 88311; J0131; J0665; J0690; J1100; J1885; J2003; J2004; J2250; J2405; J2704; J3010

== ENCOUNTER → 2025-01-05 08:05 | Outpatient (BNV) | payer MEDICARE, MEDICAID, SELFPAY | PROVIDERS: PCP Internal Medicine; Visit Provider Orthopaedic Surgery | DX: M72.0 Palmar fascial fibromatosis [Dupuytren] (principal) | CPT/HCPCS: 26123 ==

== ENCOUNTER 2025-01-20 11:13 | Outpatient (AMB) | payer MEDICARE, SELFPAY ==
--- NOTE | 2025-01-20 11:22 | A.OFFVIS_ITS ---
Vital Signs 01/20/25 11:23 Height 5 ft 6 in Weight 170 lb BMI 27.4 Intake Visit Reasons: PO LT RF dupuytrens 01/05/25 AR Intake Note: Selena is a 69 year old right hand dominant female who presents today for a Post-Operative Visit status post Left Ring Finger Partial Dupuytren's Fasciectomy & Ulnar Digital Nerve Neurolysis performed by Dr. Madera on 01/05/25. Patient reports numbness on the volar aspect of her left ring finger radiating to the end of her incision. Of note, patient came in with her surgical dressing on as she was not aware she could remove it. Allergies oxycodone (From Percocet) Adverse Reaction (Intermediate, Verified 01/20/25 11:22) occasional itching-does take 5 mg TID prn HPI HPI PO LT RF dupuytrens 01/05/25 AR: Details: Selena is a 69 year old right hand dominant female who presents today for a Post-Operative Visit status post Left Ring Finger Partial Dupuytren's Fasciectomy & Ulnar Digital Nerve Neurolysis performed by Dr. Madera on 01/05/25. Patient reports numbness on the volar aspect of her left ring finger radiating to the end of her incision. Of note, patient came in with her surgical dressing on as she was not aware she could remove it. Patient states her range of motion has improved significantly from previous evaluation, and she feels she is able to extend the hand fully. [facility] Medical History Failed back surgical syndrome Hyperlipidemia Anxiety Depression Back pain Umbilical hernia Surgical History (Updated 01/05/25 @ 08:11 by Adelia Stallworth RN) Hx of fusion of cervical spine Hx of hernia repair Hx of hand surgery History of back surgery Hx of cholecystectomy H/O: hysterectomy Hx of appendectomy H/O excision of epidermal inclusion cyst Family History Father Diabetes Sister Breast cancer Brother Diabetes Sister Diabetes Social History (Updated 11/05/24 @ 09:19 by JUVENAL Fitzpatrick) Housing: House Are you a primary intensive care medicine specialist to a significant other at home: No Do you presently have visiting nurse or other home services: No Alcohol intake: current Alcohol intake frequency: holidays/special occasions only Patient Tobacco Use Status: Current everyday Tobacco user Tobacco use type: Cigarette Cigarettes Per Day: 3 Years Smoked: 53 e-Cigarette/Vaping Use: Never Used Second Hand Smoke Exposure: No service: No Current occupational status: employed Current occupation: [employer]/ rt hand Current occupational exposures/hazards: No Cognitive needs: No Hearing needs: No Vision needs: No Review of Systems Const All systems reviewed & are unremarkable except as noted in HPI and below Physical Exam Vital Signs: BMI result Body Mass Index 27.4 Const General: cooperative, healthy appearing and no acute distress Orientation/consciousness: patient oriented x3 HEENT Head: Yes normocephalic and Yes atraumatic Eyes EOM: EOMs intact bilaterally Resp Effort & Inspection: normal respiratory effort and able to speak in complete sentences Cardio Jugular venous distension: no JVD Skin General skin exam: turgor normal Rashes: no rashes Neuro General: patient oriented x3 Extrem Other: Evaluation of Left Upper Extremity: The patient is alert, oriented, and in no acute distress Neuro: Patient reports diminished sensation in the left ring finger since surgery Vascular: Cap refill brisk ROM: She can bring all her fingers closed to a fist She can extend all her digits fully Skin: Well approximated in fairly well healing incision site noted on the volar aspect of the left hand over the 4th metacarpal and ring finger No lacerations or abrasions. General: No Ecchymosis. No Erythema or evidence of infection. Psych Appearance: grossly normal Affect: normal affect Attitude: cooperative Assessment & Plan Assessment & Plan (1) Dupuytren's contracture of left hand: Code(s): M72.0 - Palmar fascial fibromatosis [Dupuytren] Category: Medical Plan 1. Status post Dupuytren's partial fasciectomy of left hand Date of injury 01/05/2025 Patient appears to be recovering well postoperatively Patient is educated about the typical recovery course At this time, half of sutures are removed, and an every other pattern Remaining sutures will remain in until next week, as the patient smokes cigarettes and this may impair her wound healing Due to ongoing concerns for numbness and tingling in the left ring finger postoperatively, I feel it is best for the patient to follow-up with Dr. Madera to determine if any further intervention may be indicated Patient will follow-up tomorrow with occupational therapy for night splint creation and beginning to work on gentle range of motion of the left ring finger Patient understands this and is amenable to this plan Patient may wash the incision site with soap and water in the sink of the shower, no under water at least until next visit 2 lb weight limit in left hand Follow-up in one-week for remaining suture removal with Dr. Madera, sooner with any acute concerns Coding Level of Care Code Global (54265) Diagnoses Dupuytren's contracture of left hand M72.0
[2025-01-20 11:23] VITALS: BMI 27.4
--- OUTSIDE RECORDS SUMMARY | 2025-01-20 14:53 | XMS_ITS | Clinical Summary ---
Author Organization [facility] [address] [facility] [address] Address [address] [place] [address] Phone Care Team Providers Care Photocopier Technician Name Role Phone Bouchra Rebolledo MD Primary Care Provider [phone] Allergies Active Allergy Reactions Criticality Noted Date [...] - 11/14/2024 11:59 PM EDT Hospital Encounter [facility] [address] [place] [id number] Borborygmi; Frequent bowel movements Discharge Disposition: Home or Self Care 11/14/2024 11:20 AM EDT Office Visit Gastroenterology - [address] [address] Lana Claros PA Borborygmi (Primary [...] Signed Date: 11/15/2024 07:40 ET Workstation ID: [id number] Transcribed By: Self Edit Transcribed Date: 11/15/2024 [...] Signed Date: 11/15/2024 07:40 ET Workstation ID: [id number] Transcribed By: Self Edit Transcribed Date: 11/15/2024 07:28 ET Lana FIELD IMG XR PROCEDURES Final Resu lt * COLONOSCOPY (09/16/2010 10:58 AM EDT) Anatomical Region Laterality Modality Endoscopy Historical Provider GI~PROCEDURE ORDERABLES F inal Result from Last 3 Months or Most Recently Relevant to Health Maintenance Insurance [place]ICA[place] - [place] [employer] MED[place]VANT[place] Care Teams Photocopier Technician Relationship Specialty Start Date End Date Bouchra Rebolledo MD [address] [address] PCP - General Internal Medicine 05/30/24
== END 2025-01-20 11:48 | disposition home or self-care (01) ==
LOC: HO.HOS 11:14
PROVIDERS: PCP Internal Medicine
DX: M72.0 Palmar fascial fibromatosis [Dupuytren] (principal)
CPT/HCPCS: 99024

== ENCOUNTER → 2025-01-20 11:13 | Outpatient (BNVA) | payer MEDICARE, SELFPAY | PROVIDERS: PCP Internal Medicine | DX: Z47.89 Encounter for other orthopedic aftercare (principal); M72.0 Palmar fascial fibromatosis [Dupuytren] | CPT/HCPCS: 99212 ==

== ENCOUNTER 2025-02-03 13:20 | Outpatient (AMB) | payer MEDICARE, OTHER, SELFPAY ==
[2025-02-03 14:13] VITALS: BMI 27.4
--- NOTE | 2025-02-03 14:13 | A.OFFVIS_ITS ---
Vital Signs 02/03/25 14:13 Height 5 ft 6 in Weight 170 lb BMI 27.4 Intake Visit Reasons: PO-suture removal/LT RF dupuytrens 01/05/25 AR Intake Note: Selena is a 69 year old right hand dominant female who presents today for a Post-Operative Visit status post Left Ring Finger Partial Dupuytren's Fasciectomy & Ulnar Digital Nerve Neurolysis performed by Dr. Madera on 03/07/24. Patient is here for removal of remaining sutures. States she has a stinging and tingling sensation due to the sutures. Allergies oxycodone (From Percocet) Adverse Reaction (Intermediate, Verified 02/03/25 14:14) occasional itching-does take 5 mg TID prn HPI HPI PO-suture removal/LT RF dupuytrens 01/05/25 AR: Details: Selena is a 69 year old right hand dominant woman who returns S/P left ring finger partial fasciectomy & digital nerve neurolysis, DOS: 01/05/25. He is here for a wound check & remaining suture removal. She says she is doing well but has a tingling & stinging sensation about her incision, which she feels is due to her sutures. She has been wearing a custom finger splint made for her by OT. She denies any locking, or catching She works as a [employer]. She is a smoker. Hx of right ring finger fasciectomy with Dr Vela in ~[phone].(NEOS). She says she was scheduled for a left hand surgery in the past, but this would not be fully covered by her insurance at the time. [facility] Medical History Failed back surgical syndrome Hyperlipidemia Anxiety Depression Back pain Umbilical hernia Surgical History Hx of fusion of cervical spine Hx of hernia repair Hx of hand surgery History of back surgery Hx of cholecystectomy H/O: hysterectomy Hx of appendectomy H/O excision of epidermal inclusion cyst Family History Father Diabetes Sister Breast cancer Brother Diabetes Sister Diabetes Social History (Updated 11/05/24 @ 09:19 by JUVENAL Fitzpatrick) Housing: House Are you a primary care center manager to a significant other at home: No Do you presently have visiting nurse or other home services: No Alcohol intake: current Alcohol intake frequency: holidays/special occasions only Patient Tobacco Use Status: Current everyday Tobacco user Tobacco use type: Cigarette Cigarettes Per Day: 3 Years Smoked: 53 e-Cigarette/Vaping Use: Never Used Second Hand Smoke Exposure: No service: No Current occupational status: employed Current occupation: [employer]/ rt hand Current occupational exposures/hazards: No Cognitive needs: No Hearing needs: No Vision needs: No Review of Systems Const All systems reviewed & are unremarkable except as noted in HPI and below Physical Exam Vital Signs: BMI result Body Mass Index 27.4 Const General: no acute distress and alert Orientation/consciousness: patient oriented x3 Neuro General: patient oriented x3 Extrem Other: The patient was alert oriented and in no acute distress The incision is healing well with no erythema drainage or evidence of infection. Remaining sutures removed and Steri-Strips applied She can make a fist and extend all her digits No contractures, full extension at the ring finger MCP & PIP joints Sensation is intact Cap refill is brisk Psych Appearance: grossly normal Affect: normal affect Attitude: cooperative Assessment & Plan Assessment & Plan (1) Dupuytren's contracture of left hand: Code(s): M72.0 - Palmar fascial fibromatosis [Dupuytren] Category: Medical Plan Assessment & Plan: 1. Left ring finger Dupuytrens contracture, S/P partial fasciectomy & digital nerve neurolysis DOS: 01/05/25 Pre-operatively: MCP 35/PIP 30 Now: MCP 0/PIP 0 The patient appears to be doing well post-operatively & is happy with the results of her surgery I educated her about the post-operative course Remaining sutures removed today I explained the signs and symptoms of infection, if the patient develops any new or worsening erythema, drainage, pain, or warmth they should contact the clinic or attend the ED. I discussed activity modifications, she is to lift nothing heavier than a cellphone for the next 2 weeks. They should also avoid any heavy impact activities, falls, or sports activities for the next 2 weeks She will perform gentle ROM exercises at home She will continue to attend OT hand therapy & wear her finger splint as instructed She should avoid any underwater activities for the next 5 days She should gently massage about the incision site to reduce the risk of hypersensitivity She can follow up in 6 weeks for a ROM check. She may cancel this if she is doing well 2. History of right ring finger partial fasciectomy DOS: ~[address] Vela at [facility] Doing well, no complaints Scribed for Rosalinda Madera MD by Edmond Farmer, medical detailist, on 02/03/25 at 2:20 PM, EST. Coding Level of Care Code Global (92978) Diagnoses Dupuytren's contracture of left hand M72.0
--- OUTSIDE RECORDS SUMMARY | 2025-02-03 18:38 | XMS_ITS | Clinical Summary ---
Author Organization [facility] [address] [facility] [address] Address [address] [place] [address] Phone Care Team Providers Care Inverform Machine Operator Name Role Phone Bouchra Rebolledo MD Primary Care Provider [phone] Allergies Active Allergy Reactions Criticality Noted Date [...] - 11/14/2024 11:59 PM EDT Hospital Encounter [facility] Xray [address] [place] [phone] Borborygmi; Frequent bowel movements Discharge Disposition: Home or Self Care 11/14/2024 11:20 AM EDT Office Visit Gastroenterology - [address] [phone] Lana Claros PA Borborygmi (Primary [...] on file Sexual Orientation Not on file Last Filed Vital Signs Vital Sign Reading [...] Signed Date: 11/15/2024 07:40 ET Workstation ID: [id number] Transcribed By: Self Edit Transcribed Date: 11/15/2024 [...] Signed Date: 11/15/2024 07:40 ET Workstation ID: [id number] Transcribed By: Self Edit Transcribed Date: 11/15/2024 07:28 ET Lana FIELD IMG XR PROCEDURES Final Resu lt * COLONOSCOPY (09/16/2010 10:58 AM EDT) Anatomical Region Laterality Modality Endoscopy Historical Provider GI~PROCEDURE ORDERABLES F inal Result from Last 3 Months or Most Recently Relevant to Health Maintenance Insurance [place] - [place]VANTAGE Care Teams Inverform Machine Operator Relationship Specialty Start Date End Date Bouchra Rebolledo MD [address] [place] [phone] PCP - General Internal Medicine 05/30/24
== END 2025-02-03 14:27 | disposition home or self-care (01) ==
LOC: HO.HOS 13:21
PROVIDERS: PCP Internal Medicine; Visit Provider Orthopaedic Surgery
DX: M72.0 Palmar fascial fibromatosis [Dupuytren] (principal)
CPT/HCPCS: 99024

== ENCOUNTER → 2025-02-03 13:20 | Outpatient (BNVA) | payer MEDICARE, OTHER, SELFPAY | PROVIDERS: PCP Internal Medicine; Visit Provider Orthopaedic Surgery | DX: M72.0 Palmar fascial fibromatosis [Dupuytren] (principal); Z48.02 Encounter for removal of sutures | CPT/HCPCS: 99212 ==